=== PATIENT | female | born 1950 | race Caucasian/White ===

== ENCOUNTER 2016-06-27 07:21 | Day surgery (SDC) | payer BC ==
[~2016-06-27 07:21] MED LIST: AMOXICILLIN500 M2 PO; DAILY FIBER0.52 GM PO; FISH OIL 1,2001 EAC8 PO; HYDROCHLOROTHIA25 M1 PO; LIPITOR10 M1 PO; LOSARTAN POTASS50 M1 PO; MULTIVITAMINS1 EAC6 PO; PERCOCET 5-3251 EACH PO; SPIRONOLACTONE50 M1 PO; STOOL SOFTENER1 EAC4 PO; VITAMIN D32000 UNI3 PO
== END 2016-06-27 13:20 ==
LOC: SRG 07:21 → SHSC 07:24 → ORW 09:51 → PACU 11:28 → SHSC 11:55
PROC: 0T768DZ Dilation of Right Ureter with Intraluminal Device, Via Natural or Artificial Opening Endoscopic (ICD-10-PCS; principal; 2016-06-27)
PROC: 0TF3XZZ Fragmentation in Right Kidney Pelvis, External Approach (ICD-10-PCS; 2016-06-27)
DX: N13.2 Hydronephrosis with renal and ureteral calculous obstruction (principal); I10 Essential (primary) hypertension; I25.10 Atherosclerotic heart disease of native coronary artery without angina pectoris; E78.5 Hyperlipidemia, unspecified; E66.9 Obesity, unspecified; Z68.41 Body mass index [BMI] 40.0-44.9, adult; Z87.19 Personal history of other diseases of the digestive system; Z87.891 Personal history of nicotine dependence; Z90.49 Acquired absence of other specified parts of digestive tract; Z90.710 Acquired absence of both cervix and uterus; Z98.41 Cataract extraction status, right eye; Z98.42 Cataract extraction status, left eye; Z79.899 Other long term (current) drug therapy; Z98.890 Other specified postprocedural states
CPT/HCPCS: C1769; C2617; J0690